=== PATIENT | female | born 1955 | race Caucasian/White ===

== ENCOUNTER 2022-10-01 15:56 | Observation (INO) | payer MEDICARE, MEDICAID, SELFPAY ==
[2022-10-01] VITALS (7 sets, daily range): BP systolic 140–228; BP diastolic 76–136; PULSE 63–107; RESP 14–24; TEMP 36.6–37.1; O2SAT 97–98; BMI 18.3
--- NOTE | ~2022-10-01 | XR_ITS ---
EXAMINATION: XR CHEST CLINICAL INFORMATION: Cough. COMPARISON: CT of abdomen pelvis from 10/01/2022. TECHNIQUE: Frontal view of the chest was obtained. FINDINGS: Lungs are well expanded. No acute pulmonary abnormalities are identified. No evidence of edema, consolidation or overt pleural effusion on this radiograph obtained in the anteroposterior projection. There appears to be minimal linear opacity of atelectasis in the medial left base. Cardiac silhouette has normal size and contour. Pulmonary vascular pattern is normal. The visualized bones and upper abdomen are unremarkable. XR/XR chest 1V IMPRESSION: No radiographic evidence of pneumonia.
--- NOTE | ~2022-10-01 | CT_ITS ---
EXAMINATION: CT ABDOMEN AND PELVIS WITH CONTRAST CLINICAL INFORMATION: Severe abdominal pain. Bowel resection 10 years ago. COMPARISON: CT of the pelvis dated 04/08/2016. TECHNIQUE: Multidetector volumetric images were obtained from the superior aspect of the liver through the pubic symphysis following administration 85 mL of Omnipaque 350 intravenous contrast. Sagittal and coronal reformatted images were obtained on the technologist's workstation. Oral contrast: No This CT examination was performed using dose optimization techniques as appropriate, variously including the following: *Automated exposure control *Adjustment of mA and/or kV according to patient size (this includes techniques or standardized protocols for targeted exams where dose is matched to indication/reason for exam; i.e. extremities or head) *Use of iterative reconstruction technique DLP: 313 mGy-cm FINDINGS: LUNG BASES: The visualized lung bases are unremarkable. LIVER, GALLBLADDER, AND BILIARY TREE: The liver is normal in size, shape, and attenuation. No focal hepatic lesion or biliary ductal dilatation is present. The gallbladder is unremarkable with no evidence of radiopaque gallstones, gallbladder wall thickening, or obvious pericholecystic inflammatory changes. PANCREAS: Unremarkable. SPLEEN: Unremarkable. ADRENAL GLANDS: Unremarkable. KIDNEYS AND URETERS: The kidneys are normal in size, shape, and attenuation. Mild right-sided hydroureteronephrosis slightly increased when compared to the prior examination. Right lower pole renal stone measuring up to 0.4 cm, similar when compared to the prior CT. No obstructing right ureteral stone identified. No left-sided renal or ureteral stone. Simple bilateral renal cysts. Findings are not clinically significant and no dedicated follow-up imaging is recommended. BLADDER: Distended and unremarkable. GASTROINTESTINAL TRACT: No bowel wall thickening or inflammatory change. No small or large bowel obstruction. Unremarkable right-sided bowel anastomosis. PERITONEAL CAVITY: No intra-abdominal free air or free fluid. No organized fluid collection or abscess formation. ABDOMINAL WALL: Asymmetric prominence of the right rectus abdominis muscle which appears slightly heterogeneous and hyperdense, which could indicate intramuscular hemorrhage. No definite evidence of active extravasation, however, evaluation limited on delayed contrast CT. There is mild adjacent stranding. Findings are new when compared to the prior pelvic CT. LYMPH NODES: No significant lymphadenopathy. VASCULAR: No abdominal aortic dilatation. Atherosclerotic calcifications. PELVIC VISCERA: The uterus appears surgically absent. OSSEOUS STRUCTURES: Severe left hip osteoarthritis with superior femoral head cortical collapse and underlying subchondral cystic change measuring up to 1.5 cm in ML dimension, new when compared to the prior examination. Bone island within the right acetabulum. No concerning lytic or blastic osseous lesion. 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 CT/CT abdomen pelvis w IV con IMPRESSION: 1. Asymmetric prominence of the right rectus abdominis muscle which appears slightly heterogeneous and hyperdense. This likely indicates intramuscular hemorrhage. No definite evidence of active extravasation, however, evaluation limited on delayed contrast CT. 2. Mild right-sided hydroureteronephrosis, slightly increased when compared to the prior examination. Right lower pole renal stone measuring up to 0.4 cm, similar when compared to the prior CT. No obstructing right ureteral stone. No left-sided renal or ureteral stone. Distended and unremarkable urinary bladder. 3. Severe left hip osteoarthritis with superior femoral head cortical collapse and underlying subchondral cystic change, new when compared to the prior examination. Fleischner guidelines were followed.
--- NOTE | 2022-10-01 16:10 | ED_ITS ---
HPI - General Adult General Chief complaint: Abdominal Pain Stated complaint: abd pain Time Seen by Provider: 10/01/22 16:45 Source: patient, family, RN notes reviewed and old records reviewed Mode of arrival: ambulatory Limitations: no limitations History of Present Illness HPI narrative: 67-year-old female past medical history significant for hypertension, remote history of a partial colectomy presents for evaluation of abdominal pain. Patient reports that she has had a cough for the last few days and has had 3 separate urgent care visits. She is currently on steroids and antibiotics for the cough. She does feel as upper cough is improving but has mild shortness of breath She states she started yesterday with severe right lower quadrant abdominal pain. She describes the pain as burning in nature. She feels as though it may be related to ?a pulled muscle but has been getting worse. ? Her pain is constant and worse with any kind of movement She did use the bathroom this morning and had normal bowel movement She believes that she has not passed any gas since Denies any nausea, vomiting Denies any urinary issues Related Data Allergies Allergy/AdvReac Type Severity Reaction Status Date / Time codeine Allergy Unknown vomiting Verified 04/15/16 00:00 penicillin V Allergy Unknown rash, Verified 04/15/16 00:00 redness all over Penicillins [PENICILLINS] Allergy Unknown RASH Verified 10/01/22 19:24 Sulfa (Sulfonamide Allergy Unknown rash, Verified 04/15/16 00:00 Antibiotics) redness all over sulfamethoxazole Allergy Unknown BLOODSHOT Verified 10/01/22 19:24 [From BACTRIM] EYES trimethoprim [From BACTRIM] Allergy Unknown BLOODSHOT Verified 10/01/22 19:24 EYES Review of Systems Constitutional: Constitutional: Denies body ache(s), Denies chills, Denies fever(s) and Denies headache(s) Eyes: Eyes: Denies blurry vision ENT: Denies headache(s) Cardiovascular: Cardiovascular: Denies chest pain and Reports dyspnea Respiratory: Respiratory: Reports cough and Reports dyspnea Gastrointestinal: Gastrointestinal: Reports abdominal pain, Denies constipation, Denies excessive flatus, Denies nausea and Denies vomiting Genitourinary: Genitourinary: Denies dysuria Musculoskeletal: Musculoskeletal: Denies back pain Integumentary/Breasts: Skin/Breast: Denies rash Neurologic: Denies headache(s) PMFSH Social History Social History Alcohol intake: never Smoked in Last 30 Days: No Use of substances other than those prescribed or required for medical reasons: Yes Substance Use Type: Marijuana Substance Use Frequency: Occasionally Advance Directives: No Advance Directives Information Provided: No Physical Exam ED Vital Signs: Vital Signs - 24 hr 10/01/22 16:09 10/01/22 16:48 10/01/22 17:03 Temperature 98.3 F 98.8 F Pulse Rate 107 H 91 Respiratory Rate 24 H 22 H 22 H Blood Pressure 228/136 H 219/112 H Pulse Oximetry 98 98 Oxygen Delivery Method Room Air Room Air 10/01/22 19:03 10/01/22 19:13 10/01/22 21:14 Temperature 97.9 F 97.8 F Pulse Rate 82 86 63 Respiratory Rate 16 20 16 Blood Pressure 144/81 H 144/81 H 147/76 H Pulse Oximetry 98 97 Oxygen Delivery Method Room Air Room Air BMI result Body Mass Index 18.3 Const General: healthy appearing, alert and awake Nutritional Appearance: well nourished Orientation/consciousness: patient oriented x3 HENMT Head: Yes normocephalic and Yes atraumatic Eyes Eyelids: Yes eyelids normal Conjunctivae: conjunctivae normal Sclerae: sclerae normal Corneas: corneas normal Pupils: Equal, round and reactive pupils present EOM: EOMs intact bilaterally Neck Neck: Yes full ROM Resp Effort & Inspection: normal respiratory effort, able to speak in complete sentences, no audible wheezes and not labored Cardio Rate: regular rate Rhythm: regular rhythm GI Inspection: Yes normal to inspection and No distended Palpation (GI): Soft to palpation, not firm, Tenderness to palpation present (GI) in the RLQ, Guarding due to palpation present (GI) in the RLQ and Rebound tenderness present Auscultation: normoactive bowel sounds Skin General skin exam: no rashes or lesions noted and elasticity normal Neuro General: patient oriented x3 Cranial nerves: Yes Equal, round and reactive pupils present and Yes Bilaterally intact EOM present Cognition (Neuro): normal cognition Extrem Other: Moving all extremities well without any obvious deformities Course Course Course Narrative: 67 y/o F, hx of bowel resection, GERD, presenting to the emergency department with a complaint of severe abdominal pain since this morning. Has had a cough, seen at urgent care 3 times, on prednisone, doxycycline. Cough caused her to have this pain. Reports severe pain, appears very uncomfortable in triage. BP elevated at 228/136, pulse 107, RR 24rpm. Sees Dr. Richardson, GI specialist. Plan: Labs, CT abdomen and pelvis w/ contrast. labs, UA Reevaluation(s) Reevaluation #1: Received cough the labs the patient has a critical magnesium of 1.4. I ordered magnesium 2 g IV and discussed this with the patient. Time: 17:33 Reevaluation #2: Patient's CT scan resulted showing mild right-sided hydronephrosis but no evidence of obstructive uropathy. It also shows was suspicious for right rectus abdominus intramuscular hemorrhage. That is directly over the area of the patient's pain and tenderness. She is not on any blood thinners with the exception of a baby aspirin daily The patient has required 3 doses of IV pain medication. Will discuss with the hospitalist for admission and pain control Of note, the patient's CT also showed severe left hip osteoarthritis with superior femoral head cortical collapse and underlying subchondral cystic changes however the patient has no left hip pain, I discussed this with the patient and I do not see any indication for emergent intervention at this time regarding these findings. She will follow-up with her outpatient providers for her left hip findings Time: 21:18 Medications Administered Discontinued Medications Generic Name Dose Route Start Last Admin Trade Name Freq PRN Reason Stop Dose Admin Hydromorphone HCl 1 mg 10/01/22 21:03 10/01/22 21:19 Hydromorphone Hcl 1 Mg/Ml Syringe IVPUSH 10/01/22 21:04 1 mg ONCE ONE Administration Protocol Sodium Chloride 1,000 mls @ 999 mls/hr 10/01/22 17:00 10/01/22 17:39 Ns IV 10/01/22 18:00 Infused .Q1H1M ADEBAYO Infusion Magnesium Sulfate 2 gm in 50 mls @ 25 mls/hr 10/01/22 17:32 10/01/22 20:00 Magnesium Sulfate/H2o IV 10/01/22 19:31 Infused ONCE ONE Infusion Iohexol 100 ml 10/01/22 18:37 10/01/22 18:38 Iohexol 350 Mg/Ml 100 Ml Infus..Btl IV 10/01/22 18:38 85 ml ONCE ONE Administration Morphine Sulfate 4 mg 10/01/22 16:51 10/01/22 17:03 Morphine Sulfate 4 Mg/Ml Cartridge IVPUSH 10/01/22 16:52 4 mg ONCE ONE Administration Protocol Morphine Sulfate 4 mg 10/01/22 19:17 10/01/22 19:25 Morphine Sulfate 4 Mg/Ml Cartridge IVPUSH 10/01/22 19:18 4 mg ONCE ONE Administration Protocol Ondansetron HCl 4 mg 10/01/22 16:51 10/01/22 17:04 Ondansetron Hcl 4 Mg/2 Ml Vial IVPUSH 10/01/22 16:52 4 mg ONCE ONE Administration Medical Decision Making Medical Decision Making [facility] Narrative: 68-year-old female presents for evaluation of abdominal pain. She is extremely tender to palpation right lower quadrant but her abdomen is soft, no palpable masses. Her labs are significant for a white count of 16.2 1000. This may be related to her recent oral steroid use. However given her level of discomfort will get a CT scan the abdomen pelvis. UA pending. The differential is acute appendicitis, bowel obstruction, muscle strain, UTI constructive uropathy. The patient was noted to be quite hypertensive. We will address her pain, as I feel that her blood pressure is a result of her discomfort. Will hold any antihypertensive medication at this time. Differential Diagnosis Acute appendicitis Small-bowel obstruction Pyelonephritis Obstructive uropathy Muscle strain Consult Healthcare Provider Management of the patient was discussed with: Machine Captain (Discussed with Dr. Samaniego who recommends no acute surgical intervention) Lab Data [facility] Lab Attestation statement: I reviewed the patient's lab results. 10/01/22 17:01 10/01/22 17:01 Labs: Lab Results 10/01/22 10/01/22 Range/Units 17:01 17:01 WBC 16.2 H (4.8-10.8) X10*3/uL RBC 4.44 (4.20-5.50) X10*6/uL Hgb 11.8 L (12.0-16.0) g/dl Hct 35.7 L (37.0-47.0) % MCV 80.4 (80.0-98.0) fL MCH 26.6 L (27.0-33.0) pg MCHC 33.1 (31.0-35.0) g/dl RDW 14.2 (11.0-16.0) % Plt Count 737 H (160-400) X10*3/uL MPV 9.7 (9.4-12.3) fL Immature Gran % (Auto) 0.6 H (0.0-0.4) % Neut % (Auto) 88.9 H (45-73) % Lymph % (Auto) 7.8 L (20-40) % [place] % (Auto) 2.4 (2-11) % Eos % (Auto) 0.1 (0-4) % Baso % (Auto) 0.2 (0-2) % Lymph # (Auto) 1.3 (1.2-4.9) X10*3/uL [place] # (Auto) 0.4 (0.1-1.2) X10*3/uL Eos # (Auto) 0.0 (0.0-0.4) X10*3/uL Baso # (Auto) 0.0 (0.0-0.2) X10*3/uL Abs Immat Gran (auto) 0.10 H (0.00-0.03) X10*3/uL Absolute Neuts (auto) 14.4 H (2.0-8.3) x10*3/uL Absolute Nucleated RBC 0.000 (0.0-0.012) X10*3/uL Nucleated RBC % (auto) 0.0 (0.0-0.2) /100WBC Sodium 136 (135-145) mmol/L Potassium 4.2 (3.3-5.1) mmol/L Chloride 104 (96-108) mmol/L Carbon Dioxide 23 (22-29) mmol/L Anion Gap 13 (12-20) BUN 21 H (9-16) mg/dL Creatinine 0.74 (0.5-1.4) mg/dL Estim Creat Clear Calc 59.7 Estimated GFR > 60 Random Glucose 132 H (60-115) mg/dL Calcium 10.0 (8.4-10.2) mg/dL Magnesium 1.4 L* (1.6-2.6) mg/dL Total Bilirubin 0.4 (0.0-1.0) mg/dL Direct Bilirubin 0.1 (0.0-0.5) mg/dL AST 24 (5-31) U/L ALT 21 (0-31) U/L Alkaline Phosphatase 59 (39-117) U/L Total Protein 7.3 (6.5-8.0) g/dL Albumin 4.1 (3.5-5.0) g/dL Lipase 23 (8-78) U/L Discharge Plan Discharge Clinical Impression: Abdominal pain Patient Disposition: Admitted As Inpatient
[2022-10-01] MEDS: 0.9 % Sodium Chloride 1,000 ML 999 ML IV (17:03)
[2022-10-01] MEDS: Morphine Sulfate 4 MG/ML CARTRIDGE IVPUSH ×3 (17:03→23:56)
[2022-10-01] MEDS: ondansetron HCL 4 MG/2 ML VIAL IVPUSH (17:04)
[2022-10-01 17:05] LABS: MANUAL DIFF FLAG NO
[2022-10-01 17:07] LABS: Basophils Percent Auto 0.2 % (0-2); Eosinophils Percent Auto 0.1 % (0-4); Hematocrit 35.7 % (37.0-47.0); Hemoglobin 11.8 g/dl (12.0-16.0); Imm Gran Pct Auto 0.6 % (0.0-0.4); Lymphocytes Absolute Auto 1.3 X10*3/uL (1.2-4.9); Lymphocytes Percent Auto 7.8 % (20-40); Mean Corpuscular HGB Conc 33.1 g/dl (31.0-35.0); Mean Corpuscular Hemoglobin 26.6 pg (27.0-33.0); Mean Corpuscular Volume 80.4 fL (80.0-98.0); Mean Platelet Volume 9.7 fL (9.4-12.3); Monocytes Absolute Auto 0.4 X10*3/uL (0.1-1.2); Monocytes Percent Auto 2.4 % (2-11); Neutrophils Absolute Auto 14.4 x10*3/uL (2.0-8.3); Neutrophils Percent Auto 88.9 % (45-73); Platelet Count 737 X10*3/uL (160-400); Red Blood Count 4.44 X10*6/uL (4.20-5.50); Red Cell Distribution Width 14.2 % (11.0-16.0); White Blood Count 16.2 X10*3/uL (4.8-10.8)
[2022-10-01 17:32] LABS: Alanine Aminotransferase 21 U/L (0-31); Albumin Level 4.1 g/dL (3.5-5.0); Alkaline Phosphatase 59 U/L (39-117); Anion Gap 13 (12-20); Aspartate Amino Transferase 24 U/L (5-31); Bilirubin Direct 0.1 mg/dL (0.0-0.5); Bilirubin Total 0.4 mg/dL (0.0-1.0); Blood Urea Nitrogen 21 mg/dL (9-16); Carbon Dioxide 23 mmol/L (22-29); Chloride 104 mmol/L (96-108); Creatinine Clr Calc Pharmacy 59.7; Estimated Glomerular Filt Rate > 60; Glucose Random 132 mg/dL (60-115); Lipase 23 U/L (8-78); Magnesium 1.4 mg/dL (1.6-2.6); Potassium 4.2 mmol/L (3.3-5.1); Sodium 136 mmol/L (135-145); Total Protein 7.3 g/dL (6.5-8.0)
[2022-10-01] MEDS: Magnesium Sulfate/H2O 2 GM/50 ML PIGGYBACK IV (17:40)
--- NOTE | 2022-10-01 17:47 | PC.NURSE ---
Pt has extensive hx regarding bowel resection, stated she was worried this morning that something is going on at her surgical site, from all the coughing she has been doing from the bronchitis. She was medicated on arrival, IVF given, pt states she is feeling better. Mg replacement currently running
[2022-10-01] MEDS: iohexoL 350 MG/ML 100 ML INFUS..BTL IV (18:38)
--- NOTE | 2022-10-01 19:19 | PC.NURSE ---
this rn assumed care of pt @ 1900. vss. pt resting on stretcher lights dimmed. pt reports to this rn pain starting to come back this rn made nash powers aware of pt report of pain awaiting new orders at this time
[2022-10-01] MEDS: HYDROmorphone HCl 1 MG/ML SYRINGE IVPUSH (21:19)
[2022-10-01 22:49] LABS: Prothrombin Time 11.1 SEC (10.0-13.1)
[2022-10-01 22:52] LABS: Partial Thromboplastin Time 33.1 SEC (26.0-36.4)
--- NOTE | 2022-10-01 23:02 | P.HPHOSP_ITS ---
History of Present Illness Date of Service: 10/01/22 Chief Complaint: abdominal pain 67 yo F with past medical history of thrombocytosis presents to the hospital with complaints of abd pain. she states that she has been having an allergy symptoms for past 3 wks with progressively worsening cough that was intractable to all over the counter meds. she finally went to the urgent care and was diagnosed with bronchitis, given steroids, inhalers and cough meds. today she started develope a sudden onset right lower abdominal pain after a bout of coughing. Pain is intractable, constant , 10/10, radiating up to the right abdomen. She denies fever, has chill. no diarrhea or constipation. no urinary symptoms and no lower extremity edema On arrival to the ED patient hemodynamically stable with a heart rate of 107, respiratory rate of 24, blood pressure of 228/136 that has not resolved Labs are significant for WBC count of 16.2, hemoglobin of 11.8, hematocrit 35.7, magnesium of 1.4, UA negative labs otherwise unremarkable Abdomen pelvic CT shows asymmetric prominence of the right rectus abdominus muscle which appears slightly heterogeneous and hypertension. This likely indicates intramuscular hemorrhage, no definite evidence of active extravasation. This was discussed with surgery, no surgical intervention at this time. Patient received multiple IV see injections of analgesics with minimal relief therefore patient will be admitted for intractable pain Review of Systems Review of Systems: Yes all other systems are reviewed and are negative PMFSH Medical History Thrombocytosis Social History Alcohol intake: never Smoked in Last 30 Days: No Use of substances other than those prescribed or required for medical reasons: Yes Substance Use Type: Marijuana Substance Use Frequency: Occasionally Advance Directives: No Advance Directives Information Provided: No Meds Allergies Allergy/AdvReac Type Severity Reaction Status Date / Time codeine Allergy Unknown vomiting Verified 04/15/16 00:00 penicillin V Allergy Unknown rash, Verified 04/15/16 00:00 redness all over Penicillins [PENICILLINS] Allergy Unknown RASH Verified 10/01/22 19:24 Sulfa (Sulfonamide Allergy Unknown rash, Verified 04/15/16 00:00 Antibiotics) redness all over sulfamethoxazole Allergy Unknown BLOODSHOT Verified 10/01/22 19:24 [From BACTRIM] EYES trimethoprim [From BACTRIM] Allergy Unknown BLOODSHOT Verified 10/01/22 19:24 EYES Active Medications: Current Medications Acetaminophen (Acetaminophen 325 Mg Tablet) 650 mg PO Q6H PRN PRN Reason: Pain, Mild (Pain Scale 1-3) Docusate Sodium (Docusate Sodium 100 Mg Capsule) 100 mg PO DAILY PRN PRN Reason: Constipation Morphine Sulfate (Morphine Sulfate 4 Mg/Ml Cartridge) 4 mg IVPUSH Q4H PRN; Protocol PRN Reason: Pain, Severe (Pain Scale 7-10) Ondansetron HCl (Ondansetron Hcl 4 Mg/2 Ml Vial) 4 mg IVPUSH Q8H PRN PRN Reason: Nausea and Vomiting Sodium Chloride (0.9 % Sodium Chloride Flush 3 Ml Syringe) 3 ml IVFLUSH [facility] Home Medications Medication Instructions Recorded Confirmed Last Taken Type albuterol sulfate 90 mcg/actuation 2 puff inhalation Q6-8H PRN 10/01/22 10/01/22 Unknown History aerosol inhaler Wheezing anagrelide 1 mg capsule 1 mg PO DAILY 10/01/22 10/01/22 Unknown History benzonatate 100 mg capsule 100 mg PO TID 10/01/22 10/01/22 Unknown History doxycycline hyclate 100 mg tablet 100 mg PO BID 10/01/22 10/01/22 Unknown Histo ry fluoxetine 20 mg capsule 20 mg PO DAILY 10/01/22 10/01/22 Unknown History ibuprofen 800 mg tablet 800 mg PO TID 10/01/22 10/01/22 Unknown History omeprazole 20 mg capsule,delayed 20 mg PO DAILY 10/01/22 10/01/22 Unknown History release prednisone 10 mg tablet PO 10/01/22 Unknown History Physical Exam Vital Signs and Narrative: Vital Signs: Last Vital Signs Temp 97.8 F 10/01/22 21:14 Pulse 63 10/01/22 21:14 Resp 16 10/01/22 21:14 BP 147/76 H 10/01/22 21:14 Pulse Ox 97 10/01/22 21:14 O2 Del Method Room Air 10/01/22 21:14 BMI result Body Mass Index 18.3 Const: General: cooperative and no acute distress Orientation/consc iousness: patient oriented x3 Eyes: General: appearance normal, both eyes and all related structures Pupils: Equal, round and reactive pupils present Resp: Effort & Inspection: normal respiratory effort Auscultation: clear to auscultation bilaterally Cardio: Rate: regular rate Rhythm: regular rhythm GI: Other: Lower right abdominal tenderness, guarding Palpation (GI): Soft to palpation Auscultation: normal bowel sounds Skin: General skin exam: no rashes or lesions noted Neuro: General: patient oriented x3 Cranial nerves: Yes Equal, round and reactive pupils present Cognition (Neuro): normal cognition Extrem: General: Yes normal to inspection and Yes no pedal edema Results Labs 10/01/22 17:01 10/01/22 17:01 Labs: Laboratory Results - last 24 hr 10/01/22 10/01/22 10/01/22 17:01 17:01 22:26 MCV 80.4 MCH 26.6 L MCHC 33.1 RDW 14.2 Plt Count 737 H MPV 9.7 Immature Gran % (Auto) 0.6 H Neut % (Auto) 88.9 H Lymph % (Auto) 7.8 L [place] % (Auto) 2.4 Eos % (Auto) 0.1 Baso % (Auto) 0.2 Lymph # (Auto) 1.3 [place] # (Auto) 0.4 Eos # (Auto) 0.0 Baso # (Auto) 0.0 Abs Immat Gran (auto) 0.10 H Absolute Neuts (auto) 14.4 H Absolute Nucleated RBC 0.000 Nucleated RBC % (auto) 0.0 PT 11.1 INR 1.0 APTT 33.1 Anion Gap 13 Estim Creat Clear Calc 59.7 Estimated GFR > 60 Random Glucose 132 H Calcium 10.0 Magnesium 1.4 L* Total Bilirubin 0.4 Direct Bilirubin 0.1 AST 24 ALT 21 Alkaline Phosphatase 59 Total Protein 7.3 Albumin 4.1 Lipase 23 Imaging Radiologist's Impressions: Impressions Abdomen/Pelvis CT 10/01/22 18:44 IMPRESSION: 1. Asymmetric prominence of the right rectus abdominis muscle which appears slightly heterogeneous and hyperdense. This likely indicates intramuscular hemorrhage. No definite evidence of active extravasation, however, evaluation limited on delayed contrast CT. 2. Mild right-sided hydroureteronephrosis, slightly increased when compared to the prior examination. Right lower pole renal stone measuring up to 0.4 cm, similar when compared to the prior CT. No obstructing right ureteral stone. No left-sided renal or ureteral stone. Distended and unremarkable urinary bladder. 3. Severe left hip osteoarthritis with superior femoral head cortical collapse and underlying subchondral cystic change, new when compared to the prior examination. Fleischner guidelines were followed. Assessment and Plan (1) Abdominal pain: Status: Acute (2) Strain of rectus abdominis muscle: Status: Acute Plan 67-year-old female with past medical history of thrombocytosis, recent diagnosis of bronchitis, presents the hospital with abdominal pain after having signifi cant bouts of cough found to have below abnormalities # intractable abdominal pain - acute - possibly multifactorial in the setting of right rectus abdominus muscle strain versus hemorrhage seen on the abdominal CT, there is also evidence of hydroureteronephrosis with a 0.4 cm renal stone with no obstruction, - UA is negative, abdomen is tender - discussed with surgery, not a surgical patient - at this time will start on IV fluids, IV analgesics - monitor symptoms # thrombocytosis - continue anagrelide # bronchitis - continue inhalers, cough medications, doxycycline DVT prophylaxis: Early ambulation Time Spent With Patient Time: Total time managing care of this patient today ____ minutes. Quality Stroke Does the patient have a stroke diagnosis?: No VTE Prior VTE?: No VTE Risk Level:: Medical - low VTE Device Contraindication: Treatment Not Indicated VTE Drug Contraindication: Treatment Not Indicated
[2022-10-01 23:15] LABS: Appearance Urine Clear; Color Urine Yellow; Glucose Urine UA Negative (Negative); Leukocyte Esterase Urine Negative (Negative); Nitrite Urine Negative (Negative); PH 6.5 (5.0-9.0); Specific Gravity - Urine >= 1.030 (1.005-1.025); Urine Blood Negative (Negative); Urine Ketones Negative (Negative); Urine Protein Negative (Neg-Trace)
[2022-10-01] MEDS: Albuterol Sulfate 90 MCG 8 GM INHALER 2 PUFF INHALE (23:56)
[2022-10-01] MEDS: 0.9 % Sodium Chloride Flush 3 ML SYRINGE IVFLUSH (23:57)
[2022-10-02] MEDS: Lactated Ringers 1,000 ML 100 ML IVCONT ×2 (00:15→11:02)
[2022-10-02] MEDS: Benzonatate 100 MG CAPSULE PO (00:15)
[2022-10-02] MEDS: Morphine Sulfate 4 MG/ML CARTRIDGE IVPUSH ×4 (04:25→19:24)
--- NOTE | 2022-10-02 04:40 | PC.NURSE ---
late entry- pt calm and cooperative pt reporting 7/10 pain. pt medicated according to mar. pt reports able to ambulate to restroom in room. IVF infusing at this time
[2022-10-02 05:22] LABS: Basophils Percent Auto 0.3 % (0-2); Eosinophils Percent Auto 0.2 % (0-4); Hematocrit 33.5 % (37.0-47.0); Hemoglobin 10.9 g/dl (12.0-16.0); Imm Gran Abs Auto 0.06 X10*3/uL (0.00-0.03); Imm Gran Pct Auto 0.4 % (0.0-0.4); Lymphocytes Absolute Auto 1.6 X10*3/uL (1.2-4.9); Lymphocytes Percent Auto 10.9 % (20-40); MANUAL DIFF FLAG NO; Mean Corpuscular HGB Conc 32.5 g/dl (31.0-35.0); Mean Corpuscular Hemoglobin 26.7 pg (27.0-33.0); Mean Corpuscular Volume 82.1 fL (80.0-98.0); Mean Platelet Volume 9.5 fL (9.4-12.3); Monocytes Absolute Auto 0.8 X10*3/uL (0.1-1.2); Monocytes Percent Auto 5.7 % (2-11); Neutrophils Absolute Auto 12.1 x10*3/uL (2.0-8.3); Neutrophils Percent Auto 82.5 % (45-73); Platelet Count 584 X10*3/uL (160-400); Red Blood Count 4.08 X10*6/uL (4.20-5.50); Red Cell Distribution Width 14.4 % (11.0-16.0); White Blood Count 14.6 X10*3/uL (4.8-10.8)
[2022-10-02 05:39] LABS: Anion Gap 10 (12-20); Blood Urea Nitrogen 16 mg/dL (9-16); Calcium 9.5 mg/dL (8.4-10.2); Carbon Dioxide 25 mmol/L (22-29); Chloride 107 mmol/L (96-108); Creatinine Clr Calc Pharmacy 76.2; Estimated Glomerular Filt Rate > 60; Glucose Random 123 mg/dL (60-115); Potassium 4.6 mmol/L (3.3-5.1); Sodium 137 mmol/L (135-145)
--- NOTE | 2022-10-02 06:31 | MHC.CM.ED ---
Met with patient in regards to discharge planning. Patient lives alone, ambulates independently and had no services prior to coming to the hospital. PCP verified. HCP completed, signed and witnessed. Original given to patient. Copy placed in chart. Patient received 2 Moderna vaccines. No boosters. Patient's daughter, Nilam, will transport patient home when medically stable. Obs notice explained and signed. Services not anticipated to be needed at discharge because patient is not homebound. Continue to monitor for d/c needs.
[2022-10-02 07:27] VITALS: BP 155/73; PULSE 53; RESP 20; TEMP 36.6; O2SAT 99
--- NOTE | 2022-10-02 08:16 | PM.CNGS ---
History of Present Illness Consult details Consult date: 10/02/22 Requesting physician: Vee Gilmore Narrative: 67-year-old female patient presenting with abdominal wall pain of several days duration. She reports recently being diagnosed with bronchitis with significant coughing over the past week. As a result she developed the sharp pain in the right side of the abdomen with swelling. She subsequent presented emergency department and was noted to be exquisitely tender in the right lower quadrant. Laboratories were normal however CT abdomen and pelvis revealed evidence of swelling in the right rectus abdominus muscle when compared to the left side. Findings were consistent with a rectus sheath hematoma. This morning she reports her cough is improved but continues to have the abdominal pain. Review of Systems Review of Systems: Yes all other systems are reviewed and are negative Respiratory: Respiratory: Reports cough Gastrointestinal: Gastrointestinal: Reports abdominal pain, Denies diarrhea, Denies nausea and Denies vomiting Musculoskeletal: Musculoskeletal: Reports as per [facility] Past Medical History Medical History Thrombocytosis Social History Social History Alcohol intake: never Smoked in Last 30 Days: No Use of substances other than those prescribed or required for medical reasons: Yes Substance Use Type: Marijuana Substance Use Frequency: Occasionally Advance Directives: Yes Advance Directives on File: Yes Advance Directives Date on File: 10/02/22 service: No Current occupational status: unemployed Meds Allergies Allergy/AdvReac Type Severity Reaction Status Date / Time codeine Allergy Unknown vomiting Verified 04/15/16 00:00 penicillin V Allergy Unknown rash, Verified 04/15/16 00:00 redness all over Penicillins [PENICILLINS] Allergy Unknown RASH Verified 10/01/22 19:24 Sulfa (Sulfonamide Allergy Unknown rash, Verified 04/15/16 00:00 Antibiotics) redness all over sulfamethoxazole Allergy Unknown BLOODSHOT Verified 10/01/22 19:24 [From BACTRIM] EYES trimethoprim [From BACTRIM] Allergy Unknown BLOODSHOT Verified 10/01/22 19:24 EYES Active Medications: Current Medications Acetaminophen (Acetaminophen 325 Mg Tablet) 650 mg PO Q6H PRN PRN Reason: Pain, Mild (Pain Scale 1-3) Albuterol Sulfate (Albuterol Sulfate 90 Mcg 8 Gm Inhaler) 2 puff INHALE Q6H PRN PRN Reason: Wheezing Last Admin: 10/01/22 23:56 Dose: 2 puff Benzonatate (Benzonatate 100 Mg Capsule) 100 mg PO TID PRN PRN Reason: Cough Last Admin: 10/02/22 00:15 Dose: 100 mg Docusate Sodium (Docusate Sodium 100 Mg Capsule) 100 mg PO DAILY PRN PRN Reason: Constipation Doxycycline Monohydrate (Doxycycline Monohydrate 100 Mg Capsule) 100 mg PO Q12H [facility] Fluoxetine HCl (Fluoxetine Hcl 20 Mg Capsule) 20 mg PO DAILY [facility] Guaifenesin/Dextromethorphan (Guaifenesin Dm 100/10/5 Ml 5 Ml Syrup) 5 ml PO Q4H PRN PRN Reason: Cough Lactated Ringer's (Lr) 1,000 mls @ 100 mls/hr IVCONT .Q10H [facility] Last Admin: 10/02/22 00:15 Dose: 100 mls/hr Ibuprofen (Ibuprofen 800 Mg Tablet) 800 mg PO TID [facility] Morphine Sulfate (Morphine Sulfate 4 Mg/Ml Cartridge) 4 mg IVPUSH Q4H PRN; Protocol PRN Reason: Pain, Severe (Pain Scale 7-10) Last Admin: 10/02/22 04:25 Dose: 4 mg Non-Formulary Medication (Anagrelide) 1 mg PO DAILY [facility] Omeprazole (Omeprazole 20 Mg Capsule.Dr) 20 mg PO DAILY [facility] Ondansetron HCl (Ondansetron Hcl 4 Mg/2 Ml Vial) 4 mg IVPUSH Q8H PRN PRN Reason: Nausea and Vomiting Sodium Chloride (0.9 % Sodium Chloride Flush 3 Ml Syringe) 3 ml IVFLUSH QSHIFT [facility] Last Admin: 10/01/22 23:57 Dose: 3 ml Home Medications Medication Instructions Recorded Confirmed Last Taken Type albuterol sulfate 90 mcg/actuation 2 puff inhalation Q6-8H PRN 10/01/22 10/01/22 Unknown History aerosol inhaler Wheezing anagrelide 1 mg capsule 1 mg PO DAILY 10/01/22 10/01/22 Unknown History benzonatate 100 mg capsule 100 mg PO TID 10/01/22 10/01/22 Unknown History doxycycline hyclate 100 mg tablet 100 mg PO BID 10/01/22 10/01/22 Unknown History fluoxetine 20 mg capsule 20 mg PO DAILY 10/01/22 10/01/22 Unknown History ibuprofen 800 mg tablet 800 mg PO TID 10/01/22 10/01/22 Unknown History omeprazole 20 mg capsule,delayed 20 mg PO DAILY 10/01/22 10/01/22 Unknown History release prednisone 10 mg tablet PO 10/01/22 Unknown History Physical Exam Vital Signs: Vital Signs: Last Vital Signs Temp 97.9 F 10/02/22 07:27 Pulse 53 10/02/22 07:27 Resp 20 10/02/22 07:27 BP 155/73 H 10/02/22 07:27 Pulse Ox 99 10/02/22 07:27 O2 Del Method Room Air 10/02/22 07:27 BMI result Body Mass Index 18.3 Const: General: no acute distress and well developed Nutritional Appearance: well nourished Orientation/consciousness: patient oriented x3 Limitations: no limitations HEENT: Head: Yes normocephalic and Yes atraumatic Ears: hearing grossly normal bilaterally Resp: Effort & Inspection: normal respiratory effort, no audible wheezes and no respiratory distress GI: Inspection: Yes normal to inspection Palpation (GI): Soft to palpation and Tenderness to palpation present (GI) in the LLQ (Less than right side) and in the RLQ Auscultation: normal bowel sounds Rectal Exam - Female: deferred Skin: Other: Warm, dry, no rash Neuro: General: patient oriented x3 Extrem: General: Yes no clubbing, cyanosis or edema Results Labs 10/02/22 05:13 10/02/22 05:13 Labs: Abnormal lab results 10/01/22 10/01/22 10/01/22 Range/Units 17:01 17:01 22:57 WBC 16.2 H (4.8-10.8) X10*3/uL RBC (4.20-5.50) X10*6/uL Hgb 11.8 L (12.0-16.0) g/dl Hct 35.7 L (37.0-47.0) % MCH 26.6 L (27.0-33.0) pg Plt Count 737 H (160-400) X10*3/uL Immature Gran % (Auto) 0.6 H (0.0-0.4) % Neut % (Auto) 88.9 H (45-73) % Lymph % (Auto) 7.8 L (20-40) % Abs Immat Gran (auto) 0.10 H (0.00-0.03) X10*3/uL Absolute Neuts (auto) 14.4 H (2.0-8.3) x10*3/uL Anion Gap (12-20) BUN 21 H (9-16) mg/dL Random Glucose 132 H (60-115) mg/dL Magnesium 1.4 L* (1.6-2.6) mg/dL Ur Specific [place] >= 1.030 H (1.005-1.025) 10/02/22 10/02/22 Range/Units 05:13 05:13 WBC 14.6 H (4.8-10.8) X10*3/uL RBC 4.08 L (4.20-5.50) X10*6/uL Hgb 10.9 L (12.0-16.0) g/dl Hct 33.5 L (37.0-47.0) % MCH 26.7 L (27.0-33.0) pg Plt Count 584 H (160-400) X10*3/uL Immature Gran % (Auto) (0.0-0.4) % Neut % (Auto) 82.5 H (45-73) % Lymph % (Auto) 10.9 L (20-40) % Abs Immat Gran (auto) 0.06 H (0.00-0.03) X10*3/uL Absolute Neuts (auto) 12.1 H (2.0-8.3) x10*3/uL Anion Gap 10 L (12-20) BUN (9-16) mg/dL Random Glucose 123 H (60-115) mg/dL Magnesium (1.6-2.6) mg/dL Ur Specific [place] (1.005-1.025) Short CBC 10/01/22 10/02/22 Range/Units 17:01 05:13 WBC 16.2 H 14.6 H (4.8-10.8) X10*3/uL Hgb 11.8 L 10.9 L (12.0-16.0) g/dl Hct 35.7 L 33.5 L (37.0-47.0) % Plt Count 737 H 584 H (160-400) X10*3/uL BMP 10/01/22 10/02/22 17:01 05:13 Sodium 136 137 Potassium 4.2 4.6 Chloride 104 107 Carbon Dioxide 23 25 BUN 21 H 16 Creatinine 0.74 0.58 Calcium 10.0 9.5 Liver Function 10/01/22 Range/Units 17:01 Total Bilirubin 0.4 (0.0-1.0) mg/dL Direct Bilirubin 0.1 (0.0-0.5) mg/dL AST 24 (5-31) U/L ALT 21 (0-31) U/L Alkaline Phosphatase 59 (39-117) U/L Albumin 4.1 (3.5-5.0) g/dL Urine 10/01/22 Range/Units 22:57 Urine Color Yellow Urine Appearance Clear Urine pH 6.5 (5.0-9.0) Ur Specific [place] >= 1.030 H (1.005-1.025) Urine Protein Negative (Neg-Trace) mg/dL Urine Glucose (UA) Negative (Negative) mg/dL All other labs normal. Assessment and Plan (1) Rectus sheath hematoma: Status: Acute Plan 67-year-old female patient with bronchitis and persisting cough subsequently developing a right sided rectus sheath hematoma. She continues to have tenderness however her blood count has remained stable. CT was reviewed and revealed a small hematoma in the right rectus muscle. I reviewed the findings in detail with the patient and discussed treatment options. No surgical intervention is recommended as the hematoma is contained. This should resolve as long as her cough is controlled. Patient expressed understanding and agrees with the plan. Time Spent With Patient Time: Total time managing care of this patient today ____ minutes. Procedures Date of Service Date of Service: 10/02/22
[2022-10-02 08:37] LABS: Magnesium 1.8 mg/dL (1.6-2.6)
[2022-10-02] MEDS: Omeprazole 20 MG CAPSULE.DR PO (09:33)
[2022-10-02] MEDS: Doxycycline Monohydrate 100 MG CAPSULE PO ×2 (09:33→21:02)
[2022-10-02] MEDS: guaiFENesin DM 100/10/5 ML 5 ML SYRUP PO ×3 (09:33→19:24)
[2022-10-02] MEDS: Ibuprofen 800 MG TABLET PO (09:33)
[2022-10-02] MEDS: FLUoxetine HCl 20 MG CAPSULE PO (09:34)
--- NOTE | 2022-10-02 10:06 | PHA.MEDREC ---
Pharmacy Consult ? Medication Reconciliation Pharmacy has completed the medication reconciliation. Reviewed med rec done by nursing (Chelo).
--- NOTE | 2022-10-02 10:19 | PHA.MEDREC ---
Pharmacy Consult ? Medication Reconciliation Pharmacy has REVIEWED the medication reconciliation.
--- NOTE | 2022-10-02 10:30 | MHC.CLN ---
HT 67 PER PT WT 109# IBW 125#+/-10% PT IS 87% IBW INDICATES BORDERLINE UNDER WT FOR HT BMI 18.3 BORDERLINE LOW PT REPORTED HER WT TYPICALLY BELOW IBW HER ENTIRE LIFE PT REPORTS HER APPETITE IS EXCELLENT AND SHE EATS WELL PT DOES NOT APPEAR MALNOURISHED PT WITH LOW NUTRITION RISK AT THIS TIME DEFERRED FULL CLINICAL NUTRITION ASSESSMENT MONITOR PO INTAKE CLOSELY
[2022-10-02 11:56] VITALS: BP 149/71; PULSE 62; RESP 20; TEMP 36.4; O2SAT 99
--- NOTE | 2022-10-02 11:59 | MHC.CM.PN ---
EMR reviewed and per MD rounds, pt not medically cleared for D/C yet due to continued need for pain management and still needing to get her pain under control. CM will continue to follow.
--- NOTE | 2022-10-02 13:55 | P.PNIM_ITS ---
Subjective Subjective Date of Service: 10/02/22 Interval History: seen and examined this morning follow up for abdominal pain/rectus hemorrhage reporting ongoing pain right lower abdomen has ongoing cough no sob Review of Systems Review of Systems: Yes all other systems are reviewed and are negative Constitutional Constitutional: Denies chills and Denies fever(s) ENT Ears, Nose, Mouth, and Throat: Denies dizziness Cardiovascular Cardiovascular: Denies chest pain, Denies palpitations and Denies dyspnea Respiratory Respiratory: Reports cough and Denies dyspnea Neurologic Neurologic: Denies dizziness Endocrine Endocrine: Denies palpitations Physical Exam Vital Signs: Vital Signs: Last Vital Signs Temp 97.5 F 10/02/22 11:56 Pulse 62 10/02/22 11:56 Resp 20 10/02/22 11:56 BP 149/71 H 10/02/22 11:56 Pulse Ox 99 10/02/22 11:56 O2 Del Method Room Air 10/02/22 11:56 BMI result Body Mass Index 18.3 Const: General: cooperative, no acute distress, alert and awake Nutritional Appearance: thin Orientation/consciousness: patient oriented x3 Resp: Other: frequent coughing Effort & Inspection: normal respiratory effort, able to speak in complete sentences, no respiratory distress and no use of accessory muscles Cardio: Rate: regular rate Heart sounds: S1 normal heart sound present and S2 normal heart sound present GI: Other: tender to palpation right lower quadrant; no ecchymosis or erythema present; + BS Inspection: No distended Palpation (GI): Soft to palpation Neuro: General: patient oriented x3, moves all extremities and CN's II-XI intact bilaterally Extrem: General: Yes no pedal edema Objective Data Active Medications Acetaminophen (Acetaminophen 325 Mg Tablet) 650 mg PO Q6H PRN PRN Reason: Pain, Mild (Pain Scale 1-3) Albuterol Sulfate (Albuterol Sulfate 90 Mcg 8 Gm Inhaler) 2 puff INHALE Q6H PRN PRN Reason: Wheezing Last Admin: 10/01/22 23:56 Dose: 2 puff Documented By: DOMINGO Benzonatate (Benzonatate 100 Mg Capsule) 100 mg PO TID PRN PRN Reason: Cough Last Admin: 10/02/22 00:15 Dose: 100 mg Documented By: DOMINGO Docusate Sodium (Docusate Sodium 100 Mg Capsule) 100 mg PO DAILY PRN PRN Reason: Constipation Doxycycline Monohydrate (Doxycycline Monohydrate 100 Mg Capsule) 100 mg PO Q12H [facility] Last Admin: 10/02/22 09:33 Dose: 100 mg Documented By: MEET Fluoxetine HCl (Fluoxetine Hcl 20 Mg Capsule) 20 mg PO DAILY [facility] Last Admin: 10/02/22 09:34 Dose: 20 mg Documented By: MEET Guaifenesin/Dextromethorphan (Guaifenesin Dm 100/10/5 Ml 5 Ml Syrup) 5 ml PO Q4H PRN PRN Reason: Cough Last Admin: 10/02/22 13:34 Dose: 5 ml Documented By: MEET Lactated Ringer's (Lr) 1,000 mls @ 100 mls/hr IVCONT .Q10H [facility] Last Admin: 10/02/22 11:02 Dose: 100 mls/hr Documented By: MEET Ibuprofen (Ibuprofen 800 Mg Tablet) 800 mg PO TID [facility] Last Admin: 10/02/22 09:33 Dose: 800 mg Documented By: MEET Morphine Sulfate (Morphine Sulfate 4 Mg/Ml Cartridge) 4 mg IVPUSH Q4H PRN; Protocol PRN Reason: Pain, Severe (Pain Scale 7-10) Last Admin: 10/02/22 13:31 Dose: 4 mg Documented By: MEET Non-Formulary Medication (Anagrelide) 1 mg PO DAILY [facility] Omeprazole (Omeprazole 20 Mg Capsule.Dr) 20 mg PO DAILY [facility] Last Admin: 10/02/22 09:33 Dose: 20 mg Documented By: MEET Ondansetron HCl (Ondansetron Hcl 4 Mg/2 Ml Vial) 4 mg IVPUSH Q8H PRN PRN Reason: Nausea and Vomiting Sodium Chloride (0.9 % Sodium Chloride Flush 3 Ml Syringe) 3 ml IVFLUSH QSHIFT [facility] Last Admin: 10/02/22 09:13 Dose: Not Given Documented By: MEET Non-Admin Reason: IV Running Labs 10/02/22 05:13 10/02/22 05:13 Labs: Laboratory Results - last 24 hr 10/01/22 10/01/22 10/01/22 17:01 17:01 22:26 MCV 80.4 MCH 26.6 L MCHC 33.1 RDW 14.2 Plt Count 737 H MPV 9.7 Immature Gran % (Auto) 0.6 H Neut % (Auto) 88.9 H Lymph % (Auto) 7.8 L [place] % (Auto) 2.4 Eos % (Auto) 0.1 Baso % (Auto) 0.2 Lymph # (Auto) 1.3 [place] # (Auto) 0.4 Eos # (Auto) 0.0 Baso # (Auto) 0.0 Abs Immat Gran (auto) 0.10 H Absolute Neuts (auto) 14.4 H Absolute Nucleated RBC 0.000 Nucleated RBC % (auto) 0.0 PT 11.1 INR 1.0 APTT 33.1 Anion Gap 13 Estim Creat Clear Calc 59.7 Estimated GFR > 60 Random Glucose 132 H Calcium 10.0 Magnesium 1.4 L* Total Bilirubin 0.4 Direct Bilirubin 0.1 AST 24 ALT 21 Alkaline Phosphatase 59 Total Protein 7.3 Albumin 4.1 Lipase 23 Urine Color Urine Appearance Urine pH Ur Specific [place] Urine Protein Urine Glucose (UA) Urine Ketones Urine Blood Urine Nitrite Ur Leukocyte Esterase Blood Type Antibody Screen 10/01/22 10/01/22 10/02/22 22:57 23:38 05:13 MCV 82.1 MCH 26.7 L MCHC 32.5 RDW 14.4 Plt Count 584 H MPV 9.5 Immature Gran % (Auto) 0.4 Neut % (Auto) 82.5 H Lymph % (Auto) 10.9 L [place] % (Auto) 5.7 Eos % (Auto) 0.2 Baso % (Auto) 0.3 Lymph # (Auto) 1.6 [place] # (Auto) 0.8 Eos # (Auto) 0.0 Baso # (Auto) 0.0 Abs Immat Gran (auto) 0.06 H Absolute Neuts (auto) 12.1 H Absolute Nucleated RBC 0.000 Nucleated RBC % (auto) 0.0 PT INR APTT Anion Gap Estim Creat Clear Calc Estimated GFR Random Glucose Calcium Magnesium Total Bilirubin Direct Bilirubin AST ALT Alkaline Phosphatase Total Protein Albumin Lipase Urine Color Yellow Urine Appearance Clear Urine pH 6.5 Ur Specific [place] >= 1.030 H Urine Protein Negative Urine Glucose (UA) Negative Urine Ketones Negative Urine Blood Negative Urine Nitrite Negative Ur Leukocyte Esterase Negative Blood Type A Positive Antibody Screen NEGATIVE 10/02/22 05:13 MCV MCH MCHC RDW Plt Count MPV Immature Gran % (Auto) Neut % (Auto) Lymph % (Auto) [place] % (Auto) Eos % (Auto) Baso % (Auto) Lymph # (Auto) [place] # (Auto) Eos # (Auto) Baso # (Auto) Abs Immat Gran (auto) Absolute Neuts (auto) Absolute Nucleated RBC Nucleated RBC % (auto) PT INR APTT Anion Gap 10 L Estim Creat Clear Calc 76.2 Estimated GFR > 60 Random Glucose 123 H Calcium 9.5 Magnesium 1.8 Total Bilirubin Direct Bilirubin AST ALT Alkaline Phosphatase Total Protein Albumin Lipase Urine Color Urine Appearance Urine pH Ur Specific [place] Urine Protein Urine Glucose (UA) Urine Ketones Urine Blood Urine Nitrite Ur Leukocyte Esterase Blood Type Antibody Screen Assessment and Plan (1) Rectus sheath hematoma: Status: Acute Plan 67-year-old female with past medical history of thrombocytosis, recent diagnosis of bronchitis, presents the hospital with abdominal pain after having significant bouts of cough found to have rectus sheath hematoma intractable abdominal pain secondary to acute rectus sheath hematoma related to coughing/acute bronchitis seen by surgery, no surgical intervention required continue IV analgesia follow CBC mild hydroureteronephrosis 0.4 cm renal stone with no obstruction UA negative no renal dysfunction pain seems r/t rectus sheath hematoma osteoarthritis incidental finding of severe left hip osteoarthritis with femoral head cortical collapse Patient aware, outpatient follow-up recommended Chronic thrombocytosis continue anagrelide bronchitis diagnosed as outpatient continue inhalers, cough medications, doxycycline Hypomagnesemia resolved with replacement DVT prophylaxis: Early ambulation attending - dr. Larson patient requires ongoing inpatient stay for IV pain control, monitoring of CBC Time Spent With Patient Time: Total time managing care of this patient today ____ minutes. Quality Stroke Does the patient have a stroke diagnosis?: No VTE Prior VTE?: No VTE Risk Level:: Medical - low VTE Device Contraindication: Treatment Not Indicated VTE Drug Contraindication: Treatment Not Indicated
[2022-10-02 15:07] VITALS: BP 151/72; PULSE 52; RESP 17; TEMP 35.7; O2SAT 99
[2022-10-02] MEDS: predniSONE 20 MG TABLET 40 MG PO (16:55)
[2022-10-02] MEDS: 0.9 % Sodium Chloride Flush 3 ML SYRINGE IVFLUSH ×2 (16:57→21:02)
[2022-10-02 20:00] VITALS: BP 124/64; PULSE 68; RESP 18; TEMP 36.9
[2022-10-02 20:44] VITALS: BP 155/72; PULSE 70; RESP 20; TEMP 36.4; O2SAT 96
[2022-10-02 23:42] VITALS: BP 132/70; PULSE 67; RESP 18; TEMP 36.6; O2SAT 98
[2022-10-03 03:31] VITALS: BP 150/81; PULSE 74; RESP 18; TEMP 36.3; O2SAT 96
[2022-10-03] MEDS: guaiFENesin DM 100/10/5 ML 5 ML SYRUP PO ×2 (03:31→08:49)
[2022-10-03 06:49] LABS: Hematocrit 35.1 % (37.0-47.0); Hemoglobin 11.3 g/dl (12.0-16.0); Mean Corpuscular HGB Conc 32.2 g/dl (31.0-35.0); Mean Corpuscular Hemoglobin 26.7 pg (27.0-33.0); Mean Platelet Volume 10.1 fL (9.4-12.3); Platelet Count 573 X10*3/uL (160-400); Red Blood Count 4.23 X10*6/uL (4.20-5.50); Red Cell Distribution Width 14.6 % (11.0-16.0); White Blood Count 11.2 X10*3/uL (4.8-10.8)
[2022-10-03 07:43] VITALS: BP 157/80; PULSE 63; RESP 17; TEMP 36; O2SAT 96
--- NOTE | 2022-10-03 08:08 | P.PNGS_ITS ---
Subjective Subjective Date of Service: 10/03/22 Interval history: Abdominal pain is improved this morning. Still having a cough which increases the pain. Physical Exam Vital Signs: Vital Signs: Last Vital Signs Temp 96.8 F 10/03/22 07:43 Pulse 63 10/03/22 07:43 Resp 17 10/03/22 07:43 BP 157/80 H 10/03/22 07:43 Pulse Ox 96 10/03/22 07:43 O2 Del Method Room Air 10/03/22 07:43 BMI result Body Mass Index 18.3 Const: General: no acute distress and well developed Nutritional Appearance: well nourished GI: Other: Tender in the right lower quadrant, no bruising. Minimal tenderness in the left lower quadrant. Skin: General skin exam: no rashes or lesions noted Objective Data Active Medications Acetaminophen (Acetaminophen 325 Mg Tablet) 650 mg PO Q6H PRN PRN Reason: Pain, Mild (Pain Scale 1-3) Albuterol Sulfate (Albuterol Sulfate 90 Mcg 8 Gm Inhaler) 2 puff INHALE Q6H PRN PRN Reason: Wheezing Last Admin: 10/01/22 23:56 Dose: 2 puff Documented By: DOMINGO Benzonatate (Benzonatate 100 Mg Capsule) 100 mg PO TID PRN PRN Reason: Cough Last Admin: 10/02/22 00:15 Dose: 100 mg Documented By: DOMINGO Docusate Sodium (Docusate Sodium 100 Mg Capsule) 100 mg PO DAILY PRN PRN Reason: Constipation Doxycycline Monohydrate (Doxycycline Monohydrate 100 Mg Capsule) 100 mg PO Q12H [facility] Last Admin: 10/02/22 21:02 Dose: 100 mg Documented By: NANCY Fluoxetine HCl (Fluoxetine Hcl 20 Mg Capsule) 20 mg PO DAILY [facility] Last Admin: 10/02/22 09:34 Dose: 20 mg Documented By: MEET Guaifenesin/Dextromethorphan (Guaifenesin Dm 100/10/5 Ml 5 Ml Syrup) 5 ml PO Q4H PRN PRN Reason: Cough Last Admin: 10/03/22 03:31 Dose: 5 ml Documented By: NANCY Morphine Sulfate (Morphine Sulfate 4 Mg/Ml Cartridge) 2 mg IVPUSH Q4H PRN; Protocol PRN Reason: Pain, Severe (Pain Scale 7-10) Non-Formulary Medication (Anagrelide) 1 mg PO DAILY [facility] Omeprazole (Omeprazole 20 Mg Capsule.Dr) 20 mg PO DAILY [facility] Last Admin: 10/02/22 09:33 Dose: 20 mg Documented By: MEET Ondansetron HCl (Ondansetron Hcl 4 Mg/2 Ml Vial) 4 mg IVPUSH Q8H PRN PRN Reason: Nausea and Vomiting Prednisone (Prednisone 20 Mg Tablet) 40 mg PO DAILY [facility] Last Admin: 10/02/22 16:55 Dose: 40 mg Documented By: LAURA Sodium Chloride (0.9 % Sodium Chloride Flush 3 Ml Syringe) 3 ml IVFLUSH QSHIFT [facility] Last Admin: 10/02/22 21:02 Dose: 3 ml Documented By: NANCY Labs 10/03/22 05:18 10/02/22 05:13 Labs: Laboratory Results - last 24 hr 10/02/22 10/03/22 05:13 05:18 MCV 83.0 MCH 26.7 L MCHC 32.2 RDW 14.6 Plt Count 573 H MPV 10.1 Absolute Nucleated RBC 0.000 Nucleated RBC % (auto) 0.0 Magnesium 1.8 Procedures Date of Service Date of Service: 10/03/22 Progress Note: A&P Assessment and plan (1) Rectus sheath hematoma: Status: Acute Plan Rectus sheath hematoma related to bronchitis and coughing. Hemoglobin is stable without evidence of ongoing bleeding. Patient is clear from my standpoint for discharge. No surgical intervention is anticipated. Time Spent With Patient Time: Total time managing care of this patient today ____ minutes. Quality Stroke Does the patient have a stroke diagnosis?: No VTE Prior VTE?: No VTE Risk Level:: Medical - low VTE Device Contraindication: Treatment Not Indicated VTE Drug Contraindication: Treatment Not Indicated
[2022-10-03] MEDS: 0.9 % Sodium Chloride Flush 3 ML SYRINGE IVFLUSH ×3 (08:49→19:28)
[2022-10-03] MEDS: FLUoxetine HCl 20 MG CAPSULE PO (08:49)
[2022-10-03] MEDS: predniSONE 20 MG TABLET 40 MG PO (08:49)
[2022-10-03] MEDS: Omeprazole 20 MG CAPSULE.DR PO (08:49)
[2022-10-03] MEDS: Docusate Sodium 100 MG CAPSULE PO (08:49)
[2022-10-03] MEDS: Doxycycline Monohydrate 100 MG CAPSULE PO ×2 (08:49→20:02)
[2022-10-03] MEDS: guaiFEN/Codeine SF 200/20/10ML 10 ML LIQUID 5 ML PO ×2 (11:28→17:01)
[2022-10-03 11:40] VITALS: BP 181/89; PULSE 97; RESP 18; TEMP 36.1; O2SAT 96
[2022-10-03] MEDS: Morphine Sulfate 4 MG/ML CARTRIDGE 2 MG IVPUSH ×3 (11:56→22:09)
--- NOTE | 2022-10-03 12:07 | MHC.CM.PN ---
per rounds pt may be dcd today plan remains homeno servceis
--- NOTE | 2022-10-03 13:11 | HO.PM.IMPN ---
Subjective Subjective Date of Service: 10/03/22 Interval History: seen and examined this morning follow up for rectus sheath hematoma, bronchitis Physical Exam Vital Signs: Vital Signs: Last Vital Signs Temp 97.0 F 10/03/22 11:40 Pulse 97 10/03/22 11:40 Resp 18 10/03/22 11:40 BP 181/89 H 10/03/22 11:40 Pulse Ox 96 10/03/22 11:40 O2 Del Method Room Air 10/03/22 11:40 BMI result Body Mass Index 18.3 Const: General: cooperative, no acute distress, alert and awake Nutritional Appearance: thin Orientation/consciousness: patient oriented x3 Resp: Effort & Inspection: normal respiratory effort, able to speak in complete sentences, no respiratory distress and no use of accessory muscles Cardio: Rate: regular rate Heart sounds: S1 normal heart sound present and S2 normal heart sound present GI: Other: tender to palpation right lower quadrant; no ecchymosis or erythema present; + BS Inspection: No distended Palpation (GI): Soft to palpation Neuro: General: patient oriented x3, moves all extremities and CN's II-XI intact bilaterally Extrem: General: Yes no pedal edema Objective Data Active Medications Acetaminophen (Acetaminophen 325 Mg Tablet) 650 mg PO Q6H PRN PRN Reason: Pain, Mild (Pain Scale 1-3) Albuterol Sulfate (Albuterol Sulfate 90 Mcg 8 Gm Inhaler) 2 puff INHALE Q6H PRN PRN Reason: Wheezing Last Admin: 10/01/22 23:56 Dose: 2 puff Documented By: DOMINGO Benzonatate (Benzonatate 100 Mg Capsule) 100 mg PO TID PRN PRN Reason: Cough Last Admin: 10/02/22 00:15 Dose: 100 mg Documented By: DOMINGO Docusate Sodium (Docusate Sodium 100 Mg Capsule) 100 mg PO DAILY [facility] Doxycycline Monohydrate (Doxycycline Monohydrate 100 Mg Capsule) 100 mg PO Q12H [facility] Last Admin: 10/03/22 08:49 Dose: 100 mg Documented By: SHIRA Fluoxetine HCl (Fluoxetine Hcl 20 Mg Capsule) 20 mg PO DAILY [facility] Last Admin: 10/03/22 08:49 Dose: 20 mg Documented By: SHIRA Guaifenesin/Codeine Phosphate (Guaifen/Codeine Sf 200/20/10ml 10 Ml Liquid) 5 ml PO Q6H PRN PRN Reason: Cough Morphine Sulfate (Morphine Sulfate 4 Mg/Ml Cartridge) 2 mg IVPUSH Q4H PRN; Protocol PRN Reason: Pain, Severe (Pain Scale 7-10) Last Admin: 10/03/22 11:56 Dose: 2 mg Documented By: SHIRA Non-Formulary Medication (Anagrelide) 1 mg PO DAILY [facility] Omeprazole (Omeprazole 20 Mg Capsule.) 20 mg PO DAILY [facility] Last Admin: 10/03/22 08:49 Dose: 20 mg Documented By: SHIRA Ondansetron HCl (Ondansetron Hcl 4 Mg/2 Ml Vial) 4 mg IVPUSH Q8H PRN PRN Reason: Nausea and Vomiting Polyethylene Glycol (Polyethylene Glycol 3350 17 Gm Powd.Pack) 17 gm PO DAILY PRN PRN Reason: Constipation Prednisone (Prednisone 20 Mg Tablet) 40 mg PO DAILY [facility] Last Admin: 10/03/22 08:49 Dose: 40 mg Documented By: SHIRA Sodium Chloride (0.9 % Sodium Chloride Flush 3 Ml Syringe) 3 ml IVFLUSH QSHIFT [facility] Last Admin: 10/03/22 08:49 Dose: 3 ml Documented By: SHIRA Labs 10/03/22 05:18 10/02/22 05:13 Labs: Laboratory Results - last 24 hr 10/03/22 05:18 MCV 83.0 MCH 26.7 L MCHC 32.2 RDW 14.6 Plt Count 573 H MPV 10.1 Absolute Nucleated RBC 0.000 Nucleated RBC % (auto) 0.0 Assessment and Plan (1) Rectus sheath hematoma: Status: Acute Plan 67-year-old female with past medical history of thrombocytosis, recent diagnosis of bronchitis, presents the hospital with abdominal pain after having significant bouts of cough found to have rectus sheath hematoma intractable abdominal pain secondary to acute rectus sheath hematoma related to coughing/acute bronchitis seen by surgery, no surgical intervention required continue IV analgesia CBC stable mild hydroureteronephrosis 0.4 cm renal stone with no obstruction UA negative no renal dysfunction pain seems r/t rectus sheath hematoma osteoarthritis incidental finding of severe left hip osteoarthritis with femoral head cortical collapse Patient aware, outpatient follow-up recommended Chronic thrombocytosis continue anagrelide bronchitis diagnosed as outpatient continue inhalers, cough medications, doxycycline Hypomagnesemia resolved with replacement DVT prophylaxis: Early ambulation attending - dr. au patient requires ongoing inpatient stay for IV pain control, monitoring of CBC Time Spent With Patient Time: Total time managing care of this patient today ____ minutes. Quality Stroke Does the patient have a stroke diagnosis?: No VTE Prior VTE?: No VTE Risk Level:: Medical - low VTE Device Contraindication: Treatment Not Indicated VTE Drug Contraindication: Treatment Not Indicated
[2022-10-03 14:04] LABS: Adenovirus PCR Not Detected (Not Detect.); Bordetella parapertussis PCR Not Detected (Not Detect.); Bordetella pertussis PCR Not Detected (Not Detect.); Chlamydia pneumoniae PCR Not Detected (Not Detect.); Coronavirus 229E PCR Not Detected (Not Detect.); Coronavirus HKU1 PCR Not Detected (Not Detect.); Coronavirus NL63 PCR Not Detected (Not Detect.); Coronavirus OC43 PCR Not Detected (Not Detect.); Human metapneumovirus PCR Not Detected (Not Detect.); Influenza A PCR Not Detected (Not Detect.); Influenza B PCR Not Detected (Not Detect.); Mycoplasma pneumoniae PCR Not Detected (Not Detect.); Parainfluenza 1 PCR Not Detected (Not Detect.); Parainfluenza 2 PCR Not Detected (Not Detect.); Parainfluenza 3 PCR Not Detected (Not Detect.); Parainfluenza 4 PCR Not Detected (Not Detect.); RSV PCR Not Detected (Not Detect.); Rhino/Enterovirus PCR Not Detected (Not Detect.); SARS-CoV-2 PCR Not Detected (Not Detect.)
[2022-10-03 15:17] VITALS: BP 164/84; PULSE 69; RESP 18; TEMP 36.2; O2SAT 96
[2022-10-03 19:23] VITALS: BP 144/75; PULSE 77; RESP 18; TEMP 36.6; O2SAT 97
[2022-10-03] MEDS: Benzonatate 100 MG CAPSULE PO (22:09)
[2022-10-04] VITALS: BP 142/73; PULSE 67; RESP 16; TEMP 36.3; O2SAT 96
[2022-10-04 04:00] VITALS: BP 152/82; PULSE 70; RESP 16; TEMP 36.3; O2SAT 97
[2022-10-04] MEDS: guaiFEN/Codeine SF 200/20/10ML 10 ML LIQUID 5 ML PO (05:40)
[2022-10-04] MEDS: Morphine Sulfate 4 MG/ML CARTRIDGE 2 MG IVPUSH (05:42)
[2022-10-04 07:49] VITALS: BP 138/72; PULSE 62; RESP 18; TEMP 36.7; O2SAT 97
[2022-10-04] MEDS: Omeprazole 20 MG CAPSULE.DR PO (08:39)
[2022-10-04] MEDS: Doxycycline Monohydrate 100 MG CAPSULE PO (08:39)
[2022-10-04] MEDS: Docusate Sodium 100 MG CAPSULE PO (08:39)
[2022-10-04] MEDS: FLUoxetine HCl 20 MG CAPSULE PO (08:39)
[2022-10-04] MEDS: predniSONE 20 MG TABLET 40 MG PO (08:39)
[2022-10-04] MEDS: 0.9 % Sodium Chloride Flush 3 ML SYRINGE IVFLUSH (08:42)
--- NOTE | 2022-10-04 09:36 | P.PNGS_ITS ---
Subjective Subjective Date of Service: 10/04/22 Patient reports: no new complaints, feels better, tolerating a regular diet and flatus Interval history: The patient is seen in coverage for Dr. Samaniego Patient reports that she feels better. Her biggest concerns and complaints involve her cough and ongoing pulmonary issues that led to the coughing that cause the right rectus sheath hematoma. She reports her pain is stable to improved and denies any chest pain, difficulty breathing or shortness of breath. Overall, is noted, she feels better. She does endorse continued right lower quadrant pain along her right periumbilical rectus muscle Physical Exam Vital Signs: Vital Signs: Last Vital Signs Temp 98.0 F 10/04/22 07:49 Pulse 62 10/04/22 07:49 Resp 18 10/04/22 07:49 BP 138/72 10/04/22 07:49 Pulse Ox 97 10/04/22 07:49 O2 Del Method Room Air 10/04/22 07:49 BMI result Body Mass Index 18.3 On exam she is nontoxic She is in good spirits She is in no acute respiratory distress Her abdomen is soft there is right lower quadrant tenderness along the right periumbilical and infraumbilical rectal with no overt ecchymosis and no erythema Objective Data Active Medications Acetaminophen (Acetaminophen 325 Mg Tablet) 650 mg PO Q6H PRN PRN Reason: Pain, Mild (Pain Scale 1-3) Albuterol Sulfate (Albuterol Sulfate 90 Mcg 8 Gm Inhaler) 2 puff INHALE Q6H PRN PRN Reason: Wheezing Last Admin: 10/01/22 23:56 Dose: 2 puff Documented By: DOMINGO Benzonatate (Benzonatate 100 Mg Capsule) 100 mg PO TID PRN PRN Reason: Cough Last Admin: 10/03/22 22:09 Dose: 100 mg Documented By: KYREE Docusate Sodium (Docusate Sodium 100 Mg Capsule) 100 mg PO DAILY [facility] Last Admin: 10/04/22 08:39 Dose: 100 mg Documented By: SHIRA Doxycycline Monohydrate (Doxycycline Monohydrate 100 Mg Capsule) 100 mg PO Q12H [facility] Last Admin: 10/04/22 08:39 Dose: 100 mg Documented By: SHIRA Fluoxetine HCl (Fluoxetine Hcl 20 Mg Capsule) 20 mg PO DAILY [facility] Last Admin: 10/04/22 08:39 Dose: 20 mg Documented By: SHIRA Guaifenesin/Codeine Phosphate (Guaifen/Codeine Sf 200/20/10ml 10 Ml Liquid) 5 ml PO Q6H PRN PRN Reason: Cough Last Admin: 10/04/22 05:40 Dose: 5 ml Documented By: LEYDI Morphine Sulfate (Morphine Sulfate 4 Mg/Ml Cartridge) 2 mg IVPUSH Q4H PRN; Protocol PRN Reason: Pain, Severe (Pain Scale 7-10) Last Admin: 10/04/22 05:42 Dose: 2 mg Documented By: LEYDI Non-Formulary Medication (Anagrelide) 1 mg PO DAILY [facility] Omeprazole (Omeprazole 20 Mg Capsule.Dr) 20 mg PO DAILY [facility] Last Admin: 10/04/22 08:39 Dose: 20 mg Documented By: SHIRA Ondansetron HCl (Ondansetron Hcl 4 Mg/2 Ml Vial) 4 mg IVPUSH Q8H PRN PRN Reason: Nausea and Vomiting Polyethylene Glycol (Polyethylene Glycol 3350 17 Gm Powd.Pack) 17 gm PO DAILY PRN PRN Reason: Constipation Prednisone (Prednisone 20 Mg Tablet) 40 mg PO DAILY [facility] Last Admin: 10/04/22 08:39 Dose: 40 mg Documented By: SHIRA Sodium Chloride (0.9 % Sodium Chloride Flush 3 Ml Syringe) 3 ml IVFLUSH QSHIFT [facility] Last Admin: 10/04/22 08:42 Dose: 3 ml Documented By: SHIRA Labs 10/03/22 05:18 10/02/22 05:13 Labs: Laboratory Results - last 24 hr 10/03/22 11:30 Respiratory Panel [facility] See Note Adenovirus (Rapid PCR) Not Detected B.pert (TEM-PCR) Not Detected B.parapertussis DNA PCR Not Detected C. pneumoniae DNA (PCR) Not Detected Coronavirus OC43 (PCR) Not Detected Coronavirus HKU1 (PCR) Not Detected Coronavirus 229E (PCR) Not Detected Coronavirus NL63 (PCR) Not Detected Human Metapneumovir PCR Not Detected Influenza A (RT-PCR) Not Detected Influenza B (RT-PCR) Not Detected M. pneumoniae (PCR) Not Detected Parainfluenza 1 (PCR) Not Detected Parainfluenza 2 (PCR) Not Detected Parainfluenza 3 (PCR) Not Detected Parainfluenza 4 (PCR) Not Detected RSV (PCR) Not Detected Entero/Rhino (PCR) Not Detected SARS-CoV-2 RNA (RT-PCR) Not Detected Procedures Date of Service Date of Service: 10/04/22 Progress Note: A&P Assessment and plan (1) Rectus sheath hematoma: Status: Acute (2) Strain of rectus abdominis muscle: Status: Acute (3) Abdominal pain: Status: Acute (4) Cough: Status: Acute Plan Continue present management and address the patient's pulmonary complaints Would minimize NSAIDs or anticoagulants given the possible progression of the rectus sheath hematoma. I explained to the patient we typically allow these to resolve on their own as IR or operative drainage is sometimes complicated by infection. When the patient's pain is better controlled, discharge is reaso nable. Time Spent With Patient Time: Total time managing care of this patient today ____ minutes. Quality Stroke Does the patient have a stroke diagnosis?: No VTE Prior VTE?: No VTE Risk Level:: Medical - low VTE Device Contraindication: Treatment Not Indicated VTE Drug Contraindication: Treatment Not Indicated
--- NOTE | 2022-10-04 10:29 | PM.DS ---
DS: Providers Provider Date of Service: 10/04/22 Date of admission: 10/01/22 22:56 Date of discharge: 10/04/22 Primary care physician: Wil Richardson MD Consults: 10/02/22 07:57 Consult to General Surgery Routine Consulting Provider: [facility] [place] [facility] Reason for consultation: rectus abdominis muscle hemorrhage Has provider been notified: No DS: Diagnosis Discharge Diagnosis (1) Rectus sheath hematoma: Status: Acute (2) Strain of rectus abdominis muscle: Status: Acute (3) Abdominal pain: Status: Acute (4) Cough: Status: Acute DS: Summary Hospital Course Hospital Course: From H&P on day of admission 67 yo F with past medical history of thrombocytosis presents to the hospital with complaints of abd pain. she states that she has been having an allergy symptoms for past 3 wks with progressively worsening cough that was intractable to all over the counter meds. she finally went to the urgent care and was diagnosed with bronchitis, given steroids, inhalers and cough meds. today she started develope a sudden onset right lower abdominal pain after a bout of coughing. Pain is intractable, constant , 10/10, radiating up to the right abdomen. She denies fever, has chill. no diarrhea or constipation.? no urinary symptoms and no lower extremity edema On arrival to the ED patient hemodynamically stable with a heart rate of 107, respiratory rate of 24, blood pressure of 228/136 that has not resolved Labs are significant for WBC count of 16.2, hemoglobin of 11.8, hematocrit 35.7, magnesium of 1.4, UA negative ?labs otherwise unremarkable Abdomen pelvic CT shows asymmetric prominence of the right rectus abdominus muscle which appears slightly heterogeneous and hypertension.? This likely indicates intramuscular hemorrhage, no definite evidence of active extravasation.? This was discussed with surgery, no surgical intervention at this time.? Patient received multiple IV see injections of analgesics with minimal relief therefore patient will be admitted for intractable pain intractable abdominal pain secondary to acute rectus sheath hematoma. related to coughing/acute bronchitis. seen by surgery, no surgical intervention required. no evidence of active bleeding. CBC has remained stable. Pain is improving and patient is eager to return home. she has been encouraged to avoid ASA/NSAIDs until hematoma resolves. acute bronchitis. diagnosed as outpatient. continue inhalers, cough medications, doxycycline. cxr negative for pneumonia. recommend follow up with PCP to ensure resolution of symptoms. mild hydroureteronephrosis. 0.4 cm renal stone with no obstruction. UA negative. no renal dysfunction. pain seems related to rectus sheath hematoma. given size of stone should pass on own. if patient develops flank pain, dysuria or fever she is advised to return to ED. osteoarthritis incidental finding of severe left hip osteoarthritis with femoral head cortical collapse. Patient aware, outpatient follow-up recommended hypomagnesemia. improved with replacement Time Spent with Patient Time attestation: Total time managing care of this patient today ____ minutes. Discharge coordination time: Greater than 30 minutes Quality: Safe Use of Opioids Does Pt have an Active Cancer Diagnosis on the Problem List?: No Quality: Stroke Does the patient have a stroke diagnosis?: No Physical Exam Vital Signs: Vital Signs: Last Vital Signs Temp 98.0 F 10/04/22 07:49 Pulse 62 10/04/22 07:49 Resp 18 10/04/22 07:49 BP 138/72 10/04/22 07:49 Pulse Ox 97 10/04/22 07:49 O2 Del Method Room Air 10/04/22 07:49 BMI result Body Mass Index 18.3 Const: General: cooperative, no acute distress, alert and awake Nutritional Appearance: thin Orientation/consciousness: patient oriented x3 Resp: Effort & Inspection: normal respiratory effort, able to speak in complete sentences, no respiratory distress and no use of accessory muscles Cardio: Rate: regular rate Heart sounds: S1 normal heart sound present and S2 normal heart sound present GI: Other: tender to palpation right lower quadrant; no ecchymosis or erythema present; + BS Inspection: No distended Palpation (GI): Soft to palpation Neuro: General: patient oriented x3, moves all extremities and CN's II-XI intact bilaterally Extrem: General: Yes no pedal edema DS: Data Data Completed and Pending Labs on day of discharge: Laboratory Results - last 24 hr 10/03/22 11:30 Respiratory Panel [facility] See Note Adenovirus (Rapid PCR) Not Detected B.pert (TEM-PCR) Not Detected B.parapertussis DNA PCR Not Detected C. pneumoniae DNA (PCR) Not Detected Coronavirus OC43 (PCR) Not Detected Coronavirus HKU1 (PCR) Not Detected Coronavirus 229E (PCR) Not Detected Coronavirus NL63 (PCR) Not Detected Human Metapneumovir PCR Not Detected Influenza A (RT-PCR) Not Detected Influenza B (RT-PCR) Not Detected M. pneumoniae (PCR) Not Detected Parainfluenza 1 (PCR) Not Detected Parainfluenza 2 (PCR) Not Detected Parainfluenza 3 (PCR) Not Detected Parainfluenza 4 (PCR) Not Detected RSV (PCR) Not Detected Entero/Rhino (PCR) Not Detected SARS-CoV-2 RNA (RT-PCR) Not Detected Imaging CT scan - abdomen: Radiologist's impression: ITS Impressions Abdomen/Pelvis CT 10/01/22 18:44 IMPRESSION: 1. Asymmetric prominence of the right rectus abdominis muscle which appears slightly heterogeneous and hyperdense. This likely indicates intramuscular hemorrhage. No definite evidence of active extravasation, however, evaluation limited on delayed contrast CT. 2. Mild right-sided hydroureteronephrosis, slightly increased when compared to the prior examination. Right lower pole renal stone measuring up to 0.4 cm, similar when compared to the prior CT. No obstructing right ureteral stone. No left-sided renal or ureteral stone. Distended and unremarkable urinary bladder. 3. Severe left hip osteoarthritis with superior femoral head cortical collapse and underlying subchondral cystic change, new when compared to the prior examination. Fleischner guidelines were followed. Chest X-Ray 10/03/22 10:30 IMPRESSION: No radiographic evidence of pneumonia. Discharge Plan Discharge Anticipated Discharge Date/Time: 10/04/22 10:14 Patient Disposition: Home, Self-Care Discharge Diagnosis: rectus sheath hematoma bronchitis Referrals: Wil Richardson MD [Primary Care Provider] - 1 Week Discharge Medications: New codeine-guaifenesin 10-100 mg/5 mL Liquid 5 ml PO Q6H PRN (Reason: Cough) Qty: 120 0RF docusate sodium 100 mg Capsule 100 mg PO DAILY 30 Days Qty: 30 0RF tramadol 50 mg tablet 50 mg PO Q8H PRN (Reason: pain (scale score 7-10)) Qty: 10 0RF Continued prednisone 10 mg tablet See Rx Instructions .ROUTE .COMPLEX Rx Instructions: Take 6 tabs at once PO in AM day 1-2; 5 tabs day 2-3; 4 tabs day 5-6; 3 tabs day 7-8; 2 tabs day 9-10; 1 tab day 11-12 benzonatate 100 mg capsule 100 mg PO TID anagrelide 1 mg capsule 1 mg PO DAILY omeprazole 20 mg capsule,delayed release(DR/EC) 20 mg PO DAILY albuterol sulfate 90 mcg/actuation HFA aerosol inhaler 2 puff inhalation Q6-8H PRN (Reason: Wheezing) fluoxetine 20 mg capsule 20 mg PO DAILY doxycycline hyclate 100 mg tablet 100 mg PO BID Held ibuprofen 800 mg tablet 800 mg PO TID Hold Instructions: hold until hematoma resolves Discharge Orders: Discharge Order (Routine); Ordered 10/04/22 Ordered By: Vee Gilmore Activity on Discharge: As tolerated Stand Alone Forms: Patient Portal Discharge page Care Plan Goals: resolution of rectus sheath hematoma Health Concerns: rectus sheath hematoma bronchitis Plan of Treatment: complete course of doxycycline and prednisone prescribed previously use ultram for severe pain, tylenol for less severe pain cough syrup or tessalon for cough avoid aspirin, motrin or other NSAIDs until hematoma has resolved call to schedule follow up appointment with PCP to ensure resolution of bronchitis/cough. chest xray did not show evidence of pneumonia incidental finding of severe left osteoarthritis Assessment: see discharge summary
--- NOTE | 2022-10-04 11:07 | MHC.CM.PN ---
PT TO DC HOME TODAY WITH NO SERVICES
== END 2022-10-04 11:22 | disposition home or self-care (01) ==
LOC: HO.ED 21:29 → HO.EDOVER 10-02 02:36 → HO.IMC 10-02 06:13 → HO.S3 10-02 17:49
PROVIDERS: Physician Assistant; Physician Assistant Medical; Admitting Provider Internal Medicine; Emergency Provider Student in an Organized Health Care Education/Training Program; PCP Internal Medicine Medical Oncology; Visit Provider Physician Assistant Medical
DX: S30.1XXA Contusion of abdominal wall, initial encounter (principal); S39.011A Strain of muscle, fascia and tendon of abdomen, initial encounter; X58.XXXA Exposure to other specified factors, initial encounter; J20.9 Acute bronchitis, unspecified; R05.9 Cough, unspecified; R10.31 Right lower quadrant pain; D75.839 Thrombocytosis, unspecified; M16.12 Unilateral primary osteoarthritis, left hip; N13.30 Unspecified hydronephrosis; R06.02 Shortness of breath; Z20.822 Contact with and (suspected) exposure to COVID-19; I10 Essential (primary) hypertension; F12.90 Cannabis use, unspecified, uncomplicated; Z79.899 Other long term (current) drug therapy; Y93.9 Activity, unspecified; Y92.9 Unspecified place or not applicable; Y99.9 Unspecified external cause status
CPT/HCPCS: 36415; 71045; 74177; 80048; 80076; 81003; 83690; 83735; 85025; 85027; 85610; 85730; 86850; 86900; 86901; 87633; 96361; 96365; 96366; 96375; 96376; 99221; 99285; J1170; J2270; J2405; J3475; Q9967

== ENCOUNTER 2022-11-13 10:27 | Outpatient (REF) | payer MEDICARE, MEDICAID, SELFPAY ==
[2022-11-13 10:47] LABS: MANUAL DIFF FLAG NO
[2022-11-13 11:42] LABS: Basophils Absolute Auto 0.1 X10*3/uL (0.0-0.2); Basophils Percent Auto 1.4 % (0-2); Eosinophils Absolute Auto 0.5 X10*3/uL (0.0-0.4); Eosinophils Percent Auto 4.7 % (0-4); Hematocrit 36.5 % (37.0-47.0); Hemoglobin 11.8 g/dl (12.0-16.0); Imm Gran Abs Auto 0.05 X10*3/uL (0.00-0.03); Imm Gran Pct Auto 0.5 % (0.0-0.4); Lymphocytes Absolute Auto 4.1 X10*3/uL (1.2-4.9); Lymphocytes Percent Auto 41.4 % (20-40); Mean Corpuscular HGB Conc 32.3 g/dl (31.0-35.0); Mean Corpuscular Volume 83.5 fL (80.0-98.0); Mean Platelet Volume 10.5 fL (9.4-12.3); Neutrophils Absolute Auto 4.2 x10*3/uL (2.0-8.3); Platelet Count 479 X10*3/uL (160-400); Red Blood Count 4.37 X10*6/uL (4.20-5.50); Red Cell Distribution Width 16.4 % (11.0-16.0)
== END 2022-11-13 10:28 | disposition home or self-care (01) ==
LOC: HO.LAB 10:27
PROVIDERS: PCP Internal Medicine Medical Oncology; Visit Provider Internal Medicine Medical Oncology
DX: Z86.2 Personal history of diseases of the blood and blood-forming organs and certain disorders involving the immune mechanism (principal)
CPT/HCPCS: 36415; 85025

== ENCOUNTER 2023-01-20 09:17 | Outpatient (REF) | payer MEDICARE, MEDICAID, SELFPAY ==
[2023-01-20 09:36] LABS: MANUAL DIFF FLAG NO
[2023-01-20 10:06] LABS: Basophils Absolute Auto 0.1 X10*3/uL (0.0-0.2); Basophils Percent Auto 1.4 % (0-2); Eosinophils Absolute Auto 0.5 X10*3/uL (0.0-0.4); Eosinophils Percent Auto 6.5 % (0-4); Hematocrit 34.5 % (37.0-47.0); Hemoglobin 11.2 g/dl (12.0-16.0); Imm Gran Abs Auto 0.03 X10*3/uL (0.00-0.03); Imm Gran Pct Auto 0.4 % (0.0-0.4); Lymphocytes Absolute Auto 2.5 X10*3/uL (1.2-4.9); Lymphocytes Percent Auto 34.1 % (20-40); Mean Corpuscular HGB Conc 32.5 g/dl (31.0-35.0); Mean Corpuscular Hemoglobin 27.7 pg (27.0-33.0); Mean Corpuscular Volume 85.2 fL (80.0-98.0); Mean Platelet Volume 10.6 fL (9.4-12.3); Monocytes Absolute Auto 0.7 X10*3/uL (0.1-1.2); Neutrophils Absolute Auto 3.5 x10*3/uL (2.0-8.3); Neutrophils Percent Auto 48.6 % (45-73); Platelet Count 250 X10*3/uL (160-400); Red Blood Count 4.05 X10*6/uL (4.20-5.50); Red Cell Distribution Width 15.1 % (11.0-16.0); White Blood Count 7.2 X10*3/uL (4.8-10.8)
== END 2023-01-20 09:18 | disposition home or self-care (01) ==
LOC: HO.LAB 09:17
PROVIDERS: PCP Internal Medicine Medical Oncology; Visit Provider Internal Medicine Medical Oncology
DX: D47.3 Essential (hemorrhagic) thrombocythemia (principal); Z86.2 Personal history of diseases of the blood and blood-forming organs and certain disorders involving the immune mechanism
CPT/HCPCS: 36415; 85025